=== PATIENT | male | born 1960 | race Caucasian/White ===

== ENCOUNTER 2019-12-01 12:08 | Inpatient (IN) ==
[2019-12-01] MEDS ORDERED: SODIUM CHLORIDE 0.9% 1000ML 1,000 ML IV ONE (12:23)
[2019-12-01] MEDS ORDERED: MAGNESIUM SULFATE / D5W 1 GM/100 ML BAG IV ONE (12:23)
[2019-12-01] MEDS ORDERED: OPTIRAY 320 125ml IV PRN (12:28)
--- NOTE | 2019-12-01 12:39 | CT Scan Report ---
CT head/brain wo con CT DOSE: HISTORY: Mental status change Stroke evaluation TECHNIQUE: Multiaxial CT images of the head were performed without the use of intravenous contrast. A dose lowering technique was utilized adhering to the principles of ALARA. Comparison: None. Findings: Subtle effacement of several left cerebral sulci compared to the right seen primarily from images 11 through 14. This represents either artifact or early infarct of the left middle cerebral ar terial distribution. No evidence for acute intracranial hemorrhage. Impression: 1. 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 If real, this would represent a left middle cerebral arterial distribution. 3. No evidence for acute intracranial hemorrhage. ACT 112: Negative or not required by law. The above report was generated using voice recognition software. It may contain grammatical, syntax or spelling errors. Electronically signed by: Familia Huerta M.D. 12/01/2019 12:37 PM
[2019-12-01 12:40] LABS: Basophils # (auto) 0.03 K/uL (0-0.2); Basophils % (auto) 0.3 %; Eosinophils # (auto) 0.16 K/uL (0-0.5); Eosinophils % (auto) 1.4 %; Hematocrit (blood only) 44.9 % (42-52); Hemoglobin 15.9 g/dL (14.0-18.0); Immature Granulocytes # (auto) 0.07 K/uL (0.00-0.02); Immature Granulocytes % (auto) 0.6 %; Lymphocytes # (auto) 1.47 K/uL (1.2-3.4); Lymphocytes % (auto) 13.1 %; Mean Corpuscular Hemoglobin 28.3 pg (25-34); Mean Corpuscular Hgb Conc 35.4 g/dL (32-36); Mean Corpuscular Volume 79.9 fL (80-100); Mean Platelet Volume 9.9 fL (7.4-10.4); Monocytes # (auto) 0.96 K/uL (0.11-0.59); Monocytes % (auto) 8.6 %; Neutrophils # (auto) 8.49 K/uL (1.4-6.5); Platelet Count 222 K/uL (130-400); RDW Coefficient of Variation 14.1 % (11.5-14.5); RDW Standard Deviation 40.8 fL (36.4-46.3); Red Blood Count 5.62 M/uL (4.7-6.1); White Blood Count 11.18 K/uL (4.8-10.8)
--- NOTE | 2019-12-01 12:41 | CT Scan Report ---
CT angio neck with con HISTORY: Stroke evaluation TECHNIQUE: Multiaxial CT angiography of the neck was performed IV contrast: None. All measurements w ere calculated based on NASCET criteria. Maximum intensity projection images were also obtained. A dose lowering technique was utilized adhering to the principles of ALARA. COMPARISON STUDY: None. FINDINGS: The aortic arch and proximal great vessels are widely patent. There is no significant sten osis, occlusion, or dissection identified within the bilateral common carotid, internal carotid, or v ertebral arteries. IMPRESSION: No significant stenosis, occlusion, or dissection identified within the carotid or vertebral arteries . Minimal scattered plaque formation ACT 112: Negative or not required by law. The above report was generated using voice recognition software. It may contain grammatical, syntax or spelling errors. Electronically signed by: Familia Huerta M.D. 12/01/2019 12:40 PM
--- NOTE | 2019-12-01 12:44 | CT Scan Report ---
CT angio head w con HISTORY: Mental status change Stroke evaluation TECHNIQUE: Multiaxial CT angiography of the head was performed IV contrast: None. Maximum intensit y projection images were also obtained. A dose lowering technique was utilized adhering to the princ iplValarie. COMPARISON: None. FINDINGS: There is no mass, hematoma, midline shift, or acute infarct. Visualized intracranial pricing intern al carotid arteries, distal vertebral arteries, and basilar artery are widely patent. There is no sig nificant stenosis, occlusion, or aneurysm seen within the bilateral ACAs, MCAs, or inspector wreath. IMPRESSION: No significant stenosis, occlusion, or aneurysm within the [place]. ACT 112: Negative or not required by law. The above report was generated using voice recognition software. It may contain grammatical, syntax or spelling errors. Electronically signed by: Familia Huerta M.D. 12/01/2019 12:43 PM
[2019-12-01 12:56] LABS: INR 1.1 (0.9-1.1); Partial Thromboplastin Time 29.1 Seconds (21.0-31.0); Prothrombin Time 11.4 Seconds (9.0-12.0)
[2019-12-01 12:58] LABS: Albumin Level 3.4 gm/dl (3.4-5.0); BUN Creatinine Ratio 9.3 (10-20); Calcium 8.6 mg/dl (8.5-10.1); Creatinine Clr Calc Pharmacy 79.9 ml/min; Est GFR (African American) 60.3; Magnesium 1.5 mg/dl (1.8-2.4); Potassium 2.9 mmol/L (3.5-5.1)
--- NOTE | 2019-12-01 12:59 | Emergency Department Note ---
History of Present Illness General Chief complaint: Stroke Alert Stated complaint: stroke alert Time Seen by Provider: 12/01/19 12:09 Source: patient, family, EMS and RN notes reviewed Mode of arrival: EMS Limitations: altered mental status History of Present Illness Provider complaint: Rt sided weakness Onset (ago): hour(s) 4 Location: face, upper extremity and lower extremity Severity: moderate Treatments prior to arrival: none This is a 59-year-old male who presents emergency department complaining of right-sided weakness. In addition the patient also has a left-sided facial droop. The patient was last seen by his last evening before the patient went to bed. The patient's found him at approximately 9 AM this morning. She reports that the patient reportedly wet himself and was trying to get him self to the toilet. The patient found him in the bathroom and noticed that he could not move the right side of his body and the patient was having much difficulty speaking. She called 911. She reports that she actually last saw the patient normal last evening before the patient went to bed. Home Medications Home Medications Medication Instructions Recorded Confirmed Type aspirin 81 mg PO QAM 12/01/19 12/01/19 History carvedilol phosphate [Coreg CR] 80 mg PO QAM 12/01/19 12/01/19 History dapagliflozin [Farxiga] 5 mg PO QAM 12/01/19 12/01/19 History dulaglutide [Trulicity] 1.5 mg SUBCUT WK 12/01/19 12/01/19 History ezetimibe 10 - 40 mg PO QAM 12/01/19 12/01/19 History fenofibrate nanocrystallized 190 mg PO QAM 12/01/19 12/01/19 History insulin aspart U-100 [Novolog 10 - 30 unit SUBCUT BID PRN 12/01/19 12/01/19 History Flexpen U-100 Insulin] insulin detemir U-100 [Levemir 60 unit SUBCUT AMPM 12/01/19 12/01/19 History FlexTouch U-100 Insuln] levothyroxine 88 mcg PO QAM 12/01/19 12/01/19 History multivitamin 1 tab PO QAM 12/01/19 12/01/19 History nifedipine 90 mg PO QAM 12/01/19 12/01/19 History potassium chloride 10 meq PO BID 12/01/19 12/01/19 History potassium chloride 20 meq PO BID 12/01/19 12/01/19 History telmisartan 40 mg PO QAM 12/01/19 12/01/19 History Allergies Allergy/AdvReac Type Severity Reaction Status Date / Time No Known Allergies Allergy Unverified 12/01/19 13:36 Past Med/Surg History Social History (Updated 12/01/19 @ 14:20 by Ana Mortensen DO) Feels Safe at Home: Yes Smoking Status: Never smoker Hx Alcohol Use: Yes Alcohol Intake Frequency Comment: holidays, rare occasions Hx Substance Use: No Review of Systems A total of 10 systems reviewed and were otherwise negative Physical Exam Vital Signs Vital Signs - 24 hr 12/01/19 12:27 12/01/19 12:29 12/01/19 12:30 Temperature Temperature Source Pulse Rate 71 68 67 Pulse Rate from SpO2 Sensor 68 68 Pulse Rhythm Pulse Strength Respiratory Rate 16 14 21 Respiratory Effort / Characteristics Respiratory Depth Respiratory Pattern Blood Pressure 180/105 H 181/101 H Blood Pressure Mean 132 106 Blood Pressure Position Pulse Oximetry 97 98 Oxygen Delivery Method Room Air Room Air Sepsis Recent Fever Within 48 Hours Sepsis New/Unexplained Change in Mental Status Sepsis Action Taken by Nursing 12/01/19 12:32 12/01/19 12:40 12/01/19 12:50 Temperature Temperature Source Pulse Rate 72 71 75 Pulse Rate from SpO2 Sensor 72 71 73 Pulse Rhythm Regular Pulse Strength Normal Respiratory Rate 18 16 19 Respiratory Effort / Characteristics Non-Labored Spontaneous Respiratory Depth Normal Respiratory Pattern Regular Blood Pressure 180/105 H 181/104 H Blood Pressure Mean 130 121 Blood Pressure Position Lying Pulse Oximetry 95 97 97 Oxygen Delivery Method Room Air Room Air Room Air Sepsis Recent Fever Within 48 Hours No Sepsis New/Unexplained Change in Mental Status No Sepsis Action Taken by Nursing No Action Required 12/01/19 12:51 12/01/19 12:52 12/01/19 13:00 Temperature Temperature Source Pulse Rate 72 72 75 Pulse Rate from SpO2 Sensor 73 73 74 Pulse Rhythm Pulse Strength Respiratory Rate 17 17 19 Respiratory Effort / Characteristics Respiratory Depth Respiratory Pattern Blood Pressure 168/99 H 178/114 H Blood Pressure Mean 119 126 Blood Pressure Position Pulse Oximetry 99 98 97 Oxygen Delivery Method Room Air Room Air Room Air Sepsis Recent Fever Within 48 Hours Sepsis New/Unexplained Change in Mental Status Sepsis Action Taken by Nursing 12/01/19 13:05 12/01/19 13:10 12/01/19 13:20 Temperature Temperature Source Pulse Rate 66 63 67 Pulse Rate from SpO2 Sensor 66 64 67 Pulse Rhythm Pulse Strength Respiratory Rate 13 19 20 Respiratory Effort / Characteristics Respiratory Depth Respiratory Pattern Blood Pressure 164/100 H 139/90 160/95 H Blood Pressure Mean 115 98 114 Blood Pressure Position Pulse Oximetry 97 97 95 Oxygen Delivery Method Room Air Room Air Room Air Sepsis Recent Fever Within 48 Hours Sepsis New/Unexplained Change in Mental Status Sepsis Action Taken by Nursing 12/01/19 13:30 12/01/19 13:35 12/01/19 13:38 Temperature 36.8 C Temperature Source Rectal Pulse Rate 72 67 Pulse Rate from SpO2 Sensor 71 67 Pulse Rhythm Pulse Strength Respiratory Rate 18 15 Respiratory Effort / Characteristics Respiratory Depth Respiratory Pattern Blood Pressure 151/96 H Blood Pressure Mean 104 Blood Pressure Position Pulse Oximetry 97 95 Oxygen Delivery Method Room Air Room Air Sepsis Recent Fever Within 48 Hours Sepsis New/Unexplained Change in Mental Status Sepsis Action Taken by Nursing 12/01/19 13:40 12/01/19 13:50 12/01/19 14:00 Temperature Temperature Source Pulse Rate 66 67 69 Pulse Rate from SpO2 Sensor 66 67 69 Pulse Rhythm Pulse Strength Respiratory Rate 19 20 16 Respiratory Effort / Characteristics Respiratory Depth Respiratory Pattern Blood Pressure 148/108 H 172/100 H 167/104 H Blood Pressure Mean 121 119 119 Blood Pressure Position Pulse Oximetry 93 93 96 Oxygen Delivery Method Room Air Room Air Room Air Sepsis Recent Fever Within 48 Hours Sepsis New/Unexplained Change in Mental Status Sepsis Action Taken by Nursing 12/01/19 14:47 12/01/19 14:49 Temperature Temperature Source Pulse Rate 69 66 Pulse Rate from SpO2 Sensor 68 67 Pulse Rhythm Pulse Strength Respiratory Rate 16 12 Respiratory Effort / Characteristics Respiratory Depth Respiratory Pattern Blood Pressure 137/92 Blood Pressure Mean 102 Blood Pressure Position Pulse Oximetry 94 94 Oxygen Delivery Method Room Air Room Air Sepsis Recent Fever Within 48 Hours Sepsis New/Unexplained Change in Mental Status Sepsis Action Taken by Nursing GENERAL: Patient is a ill-appearing male HEAD: Normocephalic atraumatic FACE: left sided facial droop EYES: Ocular movements intact pupils equal and react to light OROPHARYNX mucous membranes are moist no exudates present no erythema or edema present NECK: Supple no nuchal rigidity CHEST: Good equal expansion LUNGS: Clear and equal to auscultation CARDIAC: Normal S1 and S2 ABDOMEN: Soft nontender no guarding BACK: No CVA tenderness EXTREMITIES: No pain upon palpation normal muscle strength in all groups no clubbing cyanosis or edema, 3/5 strength Rt arm, Rt leg NEURO: Patient is following commands is answering questions appropriately. Alert and oriented x3 Cranial Nerves 2-12 grossly intact Course Administered Medications Potassium Chloride (K Edd / Wtr) 10 meq in 100 mls @ 100 mls/hr IV Q1H KHALIF Stop: 12/01/19 15:14 Last Admin: 12/01/19 14:48 Dose: 100 mls/hr Documented by: [id number] Infusion: 12/01/19 14:13 Dose: 0 mls/hr Documented by: [id number] Admin: 12/01/19 13:13 Dose: 100 mls/hr Documented by: [id number] Ioversol (Optiray 320 125ml) 119 ml IV ONCE PRN PRN Reason: Interaction Checking Stop: 12/05/19 12:27 Last Admin: 12/01/19 12:28 Dose: 119 ml Documented by: [id number] Discontinued Medications Aspirin (Aspirin) 300 mg VT ONE ONE Stop: 12/01/19 13:20 Last Admin: 12/01/19 13:30 Dose: 300 mg Documented by: [id number] Magnesium Sulfate/Dextrose (Magnesium Sulfate / D5w) 1 gm in 100 mls @ 100 mls/hr IV ONE ONE Stop: 12/01/19 13:22 Last Infusion: 12/01/19 13:51 Dose: 0 mls/hr Documented by: [id number] Admin: 12/01/19 12:51 Dose: 100 mls/hr Documented by: [id number] Sodium Chloride (Nss 1000ml) 1,000 mls @ 999 mls/hr IV .Q1H1M ONE Stop: 12/01/19 13:23 Last Infusion: 12/01/19 13:39 Dose: 0 mls/hr Documented by: [id number] Admin: 12/01/19 12:38 Dose: 999 mls/hr Documented by: [id number] Critical Care Time I have personally spent greater than 30 minutes of critical care time in the direct management of this patient. This includes bedside care, interpretation of diagnostic studies, and testing, discussion with consultants, patient, and family members, and other required patient management activities. This 30 minutes is in excess of all separately billable procedures. Medical Decision Making Differential Diagnosis Infection, dehydration, metabolic abnormality, hypo/hyperglycemia, electrolyte disturbance, anemia, hypoxia, cardiac sources, intracerebral event, toxicologic, neurologic, as well as other pathologies. Medical Records Attestation: I reviewed the patient's medical records. Home Medications Current Medication List: was personally reviewed by me Laboratory Data Attestation: I reviewed the patient's lab results. Result diagrams: 12/01/19 12:00 12/01/19 12:00 Lab Results 12/01/19 12/01/19 12/01/19 Range/Units 12:00 12:00 12:00 WBC 11.18 H (4.8-10.8) K/uL RBC 5.62 (4.7-6.1) M/uL Hgb 15.9 (14.0-18.0) g/dL Hct 44.9 (42-52) % MCV 79.9 L (80-100) fL MCH 28.3 (25-34) pg MCHC 35.4 (32-36) g/dL RDW Std Deviation 40.8 (36.4-46.3) fL RDW Coeff of Wilfrid 14.1 (11.5-14.5) % Plt Count 222 (130-400) K/uL MPV 9.9 (7.4-10.4) fL Immature Gran % (Auto) 0.6 % Neut % (Auto) 76.0 % Lymph % (Auto) 13.1 % Cook % (Auto) 8.6 % Eos % (Auto) 1.4 % Baso % (Auto) 0.3 % Immature Gran # (Auto) 0.07 H (0.00-0.02) K/uL Neut # (Auto) 8.49 H (1.4-6.5) K/uL Lymph # (Auto) 1.47 (1.2-3.4) K/uL Cook # (Auto) 0.96 H (0.11-0.59) K/uL Eos # (Auto) 0.16 (0-0.5) K/uL Baso # (Auto) 0.03 (0-0.2) K/uL PT 11.4 (9.0-12.0) Seconds INR 1.1 (0.9-1.1) APTT 29.1 (21.0-31.0) Seconds PTT Ratio 1.0 Sodium 140 (136-145) mmol/L Potassium 2.9 L (3.5-5.1) mmol/L Chloride 106 (98-107) mmol/L Carbon Dioxide 29 (21-32) mmol/L Anion Gap 5.0 (3-11) BUN 13 (7-18) mg/dl Creatinine 1.44 H (0.6-1.4) mg/dl Est Cr Clr Drug Dosing 79.9 ml/min Est GFR ( Amer) 60.3 Est GFR (Non-Af Amer) 52.0 BUN/Creatinine Ratio 9.3 L (10-20) Glucose 141 H (70-99) mg/dl POC Glucose (70-99) mg/dl Calcium 8.6 (8.5-10.1) mg/dl Magnesium 1.5 L (1.8-2.4) mg/dl Total Bilirubin 0.5 (0.2-1) mg/dl AST 39 H (15-37) U/L ALT 37 (12-78) U/L Alkaline Phosphatase 70 (45-117) U/L Total Creatine Kinase 215 (39-308) U/L CK-MB (CK-2) 2.6 (0.5-3.6) ng/ml CK/CKMB % Calc 1.2 (0-3.0) Troponin I 0.027 (0-0.045) ng/ml Total Protein 8.1 (6.4-8.2) gm/dl Albumin 3.4 (3.4-5.0) gm/dl Globulin 4.7 H (2.5-4.0) gm/dl Albumin/Globulin Ratio 0.7 L (0.9-2) 12/01/19 Range/Units 12:29 WBC (4.8-10.8) K/uL RBC (4.7-6.1) M/uL Hgb (14.0-18.0) g/dL Hct (42-52) % MCV (80-100) fL MCH (25-34) pg MCHC (32-36) g/dL RDW Std Deviation (36.4-46.3) fL RDW Coeff of Wilfrid (11.5-14.5) % Plt Count (130-400) K/uL MPV (7.4-10.4) fL Immature Gran % (Auto) % Neut % (Auto) % Lymph % (Auto) % Cook % (Auto) % Eos % (Auto) % Baso % (Auto) % Immature Gran # (Auto) (0.00-0.02) K/uL Neut # (Auto) (1.4-6.5) K/uL Lymph # (Auto) (1.2-3.4) K/uL Cook # (Auto) (0.11-0.59) K/uL Eos # (Auto) (0-0.5) K/uL Baso # (Auto) (0-0.2) K/uL PT (9.0-12.0) Seconds INR (0.9-1.1) APTT (21.0-31.0) Seconds PTT Ratio Sodium (136-145) mmol/L Potassium (3.5-5.1) mmol/L Chloride (98-107) mmol/L Carbon Dioxide (21-32) mmol/L Anion Gap (3-11) BUN (7-18) mg/dl Creatinine (0.6-1.4) mg/dl Est Cr Clr Drug Dosing ml/min Est GFR ( Amer) Est GFR (Non-Af Amer) BUN/Creatinine Ratio (10-20) Glucose (70-99) mg/dl POC Glucose 125 H (70-99) mg/dl Calcium (8.5-10.1) mg/dl Magnesium (1.8-2.4) mg/dl Total Bilirubin (0.2-1) mg/dl AST (15-37) U/L ALT (12-78) U/L Alkaline Phosphatase (45-117) U/L Total Creatine Kinase (39-308) U/L CK-MB (CK-2) (0.5-3.6) ng/ml CK/CKMB % Calc (0-3.0) Troponin I (0-0.045) ng/ml Total Protein (6.4-8.2) gm/dl Albumin (3.4-5.0) gm/dl Globulin (2.5-4.0) gm/dl Albumin/Globulin Ratio (0.9-2) Imaging Data Radiologist's Impression: Patient: FABIO ALMARAZ Admit Date: 12/01/19 MR#: [id number] Address1: [address] Acct ID:[id number] Address2: Date: 1960 [facility] Zip: [place] [address] Age: 59 Location: ED Sex: M Room/Bed: Att Phy: Diagnosis: stroke alert Stephania Phy: PCP,NO Service Date: 12/01/19 Fam Phy: Interpreting Phy: Familia Huerta MD Admit Phy: Ordering Phy: Bautista Mckenzie MD cc: ~ XR chest 1V portable CLINICAL HISTORY: stroke eval mental status change COMPARISON STUDY: No previous studies for comparison. FINDINGS: Mild cardiomegaly. Prominent pulmonary vasculature. Diaphragms are smooth. IMPRESSION: Developing congestive heart failure. ACT 112: Negative or not required by law. The above report was generated using voice recognition software. It may contain grammatical, syntax or spelling errors. Electronically signed by: Familia Huerta M.D. 12/01/2019 1:46 PM [place], [place] [phone] CT Scan Report Patient: FABIO ALMARAZ Admit Date: 12/01/19 MR#: [id number] Address1: [address] Acct ID:[id number] Address2: Date: 1960 [facility] Zip: [place] [address] Age: 59 Location: ED Sex: M Room/Bed: Att Phy: Diagnosis: stroke alert Stephania Phy: PCP,NO Service Date: 12/01/19 Fam Phy: Interpreting Phy: Familia Huerta MD Admit Phy: Ordering Phy: Bautista Mckenzie MD cc: ~ CT angio neck with con HISTORY: Stroke evaluation TECHNIQUE: Multiaxial CT angiography of the neck was performed IV contrast: None. All measurements were calculated based on NASCET criteria. Maximum intensity projection images were also obtained. A dose lowering technique was utilized adhering to the principles of ALARA. COMPARISON STUDY: None. FINDINGS: The aortic arch and proximal great vessels are widely patent. There is no significant stenosis, occlusion, or dissection identified within the bilateral common carotid, internal carotid, or vertebral arteries. IMPRESSION: No significant stenosis, occlusion, or dissection identified within the carotid or vertebral arteries. Minimal scattered plaque formation ACT 112: Negative or not required by law. The above report was generated using voice recognition software. It may contain grammatical, syntax or spelling errors. Electronically signed by: Familia Huerta M.D. 12/01/2019 12:40 PM Dictated: 12/01/19 1238 Transcribed: 12/01/19 1238 [place], [place] [phone] CT Scan Report Patient: FABIO ALMARAZ Admit Date: 12/01/19 MR#: [id number] Address1: [address] Acct ID:[id number] Address2: Date: 1960 [facility] Zip: [place] [address] Age: 59 Location: ED Sex: M Room/Bed: Att Phy: Diagnosis: stroke alert Stephania Phy: PCP,NO Service Date: 12/01/19 Fam Phy: Interpreting Phy: Familia Huerta MD Admit Phy: Ordering Phy: Bautista Mckenzie MD cc: ~ CT angio head w con HISTORY: Mental status change Stroke evaluation TECHNIQUE: Multiaxial CT angiography of the head was performed IV contrast: None. Maximum intensity projection images were also obtained. A dose lowering technique was utilized adhering to the principles of ALARA. COMPARISON: None. FINDINGS: There is no mass, hematoma, midline shift, or acute infarct. Visualized intracranial internal carotid arteries, distal vertebral arteries, and basilar artery are widely patent. 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 IMPRESSION: No significant stenosis, occlusion, or aneurysm within the [place]. ACT 112: Negative or not required by law. The above report was generated using voice recognition software. It may contain grammatical, syntax or spelling errors. Electronically signed by: Familia Huerta M.D. 12/01/2019 12:43 PM Dictated: 12/01/19 1240 Transcribed: 12/01/19 1240 [place], [place] [phone] CT Scan Report Patient: FABIO ALMARAZ Admit Date: 12/01/19 MR#: [id number] Address1: [address] Acct ID:[id number] Address2: Date: 1960 [facility] Zip: [place] [address] Age: 59 Location: ED Sex: M Room/Bed: Att Phy: Diagnosis: stroke alert Stephania Phy: PCP,NO Service Date: 12/01/19 Fam Phy: Interpreting Phy: Familia Huerta MD Admit Phy: Ordering Phy: Bautista Mckenzie MD cc: ~ CT head/brain wo con CT DOSE: HISTORY: Mental status change Stroke evaluation TECHNIQUE: Multiaxial CT images of the head were performed without the use of intravenous contrast. A dose lowering technique was utilized adhering to the principles of ALARA. Comparison: None. Findings: Subtle effacement of several left cerebral sulci compared to the right seen primarily from images 11 through 14. This represents either artifact or early infarct of the left middle cerebral arterial distribution. No evidence for acute intracranial hemorrhage. Impression: 1. 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 If real, this would represent a left middle cerebral arterial distribution. 3. No evidence for acute intracranial hemorrhage. ACT 112: Negative or not required by law. The above report was generated using voice recognition software. It may contain grammatical, syntax or spelling errors. Electronically signed by: Familia Huerta M.D. 12/01/2019 12:37 PM Dictated: 12/01/19 1235 Transcribed: 12/01/19 1235 Patient: FABIO ALMARAZ Admit Date: 12/01/19 MR#: [id number] Address1: [address] [place] [address] Acct ID:[id number] Address2: Date: 1960 [facility] Zip: [place] [address] Age: 59 Location: ED Sex: M Room/Bed: Att Phy: Diagnosis: stroke alert Stephania Phy: PCP,NO Service Date: 12/01/19 Fam Phy: Interpreting Phy: Familia Huerta MD Admit Phy: Ordering Phy: Bautista Mckenzie MD cc: ~ MR brain wo con HISTORY: Pt c/o Rt sided weakness TECHNIQUE: Multiplanar multisequence MRI of the brain was performed without the use of contrast. COMPARISON STUDY: CT same date FINDINGS: Diffusion images confirm the presence of an acute infarct of the left temporal occipital lobe. The ventricular system is midline. There are minimal chronic small vessel changes consistent with age. The sella and parasellar regions are unremarkable. The structures of the internal auditory canals are unremarkable. IMPRESSION: 1. 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 2. This finding is superimposed upon a component of age-related chronic small vessel change. ACT 112: Negative or not required by law. The above report was generated using voice recognition software. It may contain grammatical, syntax or spelling errors. Electronically signed by: Familia Huerta M.D. 12/01/2019 2:49 PM Dictated: 12/01/191445 Transcribed: 12/01/191445 ECG Data Attestation: I personally reviewed and interpreted this ECG as follows: Indication: + altered mental status Rate (beats per minute): 68 ECG Intervals/blocks: + Normal QT-c (467) ECG Philo: + Normal ECG ST segments: no ST depression and no ST elevation Comparison ECG Date: no prior available Blood Pressure Blood Pressure Findings: Elevated blood pressure Blood Pressure Disposition: further management by hospitalist PRIYANKA Narrative Cardiac monitoring: An order was placed for continuous cardiac monitoring. The monitor shows a rate of 70 with Normal Sinus rhythm. This is a 59-year-old male who presents the emergency department with inability to move the right side of his body as well as a left-sided facial droop. His CAT scan is concerning for a left parietal infarct. I did consider giving TPA to this patient however upon further questioning with the patient's it is evident that he has not been seen as normal since last evening. A stroke alert was initiated and the patient was immediately sent for CTA of the head and neck. His CAT scan is concerning for a left parietal infarct. He was started on magnesium and his potassium was repleted here in the emergency department. Potassium was found to be 2.9. He was given per rectal aspirin. After discussing the case with the on-call neurologist who was kind enough to see and examined the patient he was discussed with the hospitalist service who did agree to admit the patient. Impression & Plan Right sided weakness, Weakness on left side of face Discharge Plan Visit Data Chief Complaint: Stroke Alert Stated Complaint: stroke alert ED Provider: Bautista Mckenzie Discharge Problem: Right sided weakness, Weakness on left side of face Forms Stand Alone Forms: [facility] [employer] Prescriptions Prescriptions: No Action multivitamin Tablet 1 tab PO QAM RF: 0 nifedipine 90 mg Tablet Extended Release 90 mg PO QAM RF: 0 potassium chloride 10 mEq Tablet Extended Release 10 meq PO BID RF: 0 aspirin 81 mg Tablet,Delayed Release (Dr/Ec) 81 mg PO QAM RF: 0 levothyroxine 88 mcg Tablet 88 mcg PO QAM RF: 0 telmisartan 20 mg Tablet 40 mg PO QAM RF: 0 ezetimibe 10 mg Tablet 10 - 40 mg PO QAM RF: 0 insulin aspart U-100 [Novolog Flexpen U-100 Insulin] 100 unit/mL (3 mL) Insulin Pen 10 - 30 unit SUBCUT BID PRN (Reason: as per glucose testing) RF: 0 Levemir FlexTouch U-100 Insuln 100 unit/mL (3 mL) Insulin Pen 60 unit SUBCUT AMPM RF: 0 fenofibrate nanocrystallized 145 mg Tablet 190 mg PO QAM RF: 0 carvedilol phosphate [Coreg CR] 80 mg Capsule, Er Multiphase 24 Hr 80 mg PO QAM RF: 0 Farxiga 5 mg Tablet 5 mg PO QAM RF: 0 potassium chloride 20 mEq Tablet Extended Release 20 meq PO BID RF: 0 Trulicity 1.5 mg/0.5 mL Pen Injector 1.5 mg SUBCUT WK RF: 0
[2019-12-01 13:05] LABS: Albumin Globulin Ratio 0.7 (0.9-2); Bilirubin,Total 0.5 mg/dl (0.2-1); Creatine Kinase MB 2.6 ng/ml (0.5-3.6); Globulin 4.7 gm/dl (2.5-4.0); Total Protein 8.1 gm/dl (6.4-8.2); Troponin I 0.027 ng/ml (0-0.045)
[2019-12-01] MEDS: POTASSIUM CHLORIDE / WTR 10 MEQ/100 ML PLCT IV SCH ×2 (13:13→14:48)
[2019-12-01] MEDS ORDERED: ASPIRIN 300 MG SUPP PR ONE (13:19)
--- NOTE | 2019-12-01 13:47 | XRay Report ---
XR chest 1V portable CLINICAL HISTORY: stroke eval mental status change COMPARISON STUDY: No previous studies for comparison. FINDINGS: Mild cardiomegaly. Prominent pulmonary vasculature. Diaphragms are smooth. IMPRESSION: Developing congestive heart failure. ACT 112: Negative or not required by law. The above report was generated using voice recognition software. It may contain grammatical, syntax or spelling errors. Electronically signed by: Familia Huerta M.D. 12/01/2019 1:46 PM
--- NOTE | 2019-12-01 14:29 | History & Physical Report ---
Date of Service December 01, 2019 Assessment & Plan (1) CVA (cerebral vascular accident): As noted on CT CTA head/neck neg for acute MRI, ECHO pending Evaluated by [facility] telestroke in the ED Neuro c/s pending Pt with 81mg aspirin use at baseline, received NE aspirin in ED PT/OT/ST pending (2) ST segment abnormality: Pt has an EKG from 2006 that is similar (scanned to wallet size) Trop neg x1, serials pending ECHO pending (3) Hypokalemia: Replaced in the ED, monitor Baseline PO supplementation noted (4) Hypomagnesemia: Replaced in the ED, monitor Baseline PO supplementation noted (5) Elevated serum creatinine: Possibly chronic as daughter states pt was 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 Pt is unable to answer questions at this time. states that pt was in his usual state of health last night when they went to bed. His only unusual physical finding this week was that his R hand was very cold to touch over the last few days. He had otherwise been able to function at his usual. states that she woke up this morning and attempted to speak with pt, but he was minimally responsive. She states that this is not unusual for him in the AM, so she got up. She was cooking around 10-10:30a when she called into the bedroom, however pt did not answer. She went in the room to speak to him directly and he was not in their bed. He was in the bathroom. She attempted to speak with him through the door, however he was not answering her. She opened the door and could hear the pt mumbling in an attempt to speak, but was unable to do so. Pt was on the floor. She called EMS at that time. states that pt is somewhat improved at this time. He does seem to be understanding more and following commands better. She states he attempts at speaking are better. He seems more "alert" to her. He is also moving his extremities better than during the telestroke eval. denies recent fever, SOB, chest pain, abd pain, n/v/c/d, LE pain or swelling. He has been eating without issue. Pt moved to the area about 2 years ago. He does follow with a PCP and [facility] in [place]. Daughter states via phone that pt was seen by nephrology at one point and had a renal US done, but does not know why. 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 Allergies Allergy/AdvReac Type Severity Reaction Status Date / Time No Known Allergies Allergy Unverified 12/01/19 13:36 Home Medications Home Medications Medication Instructions Recorded Confirmed Type aspirin 81 mg PO QAM 12/01/19 12/01/19 History carvedilol phosphate [Coreg CR] 80 mg PO QAM 12/01/19 12/01/19 History dapagliflozin [Farxiga] 5 mg PO QAM 12/01/19 12/01/19 History dulaglutide [Trulicity] 1.5 mg SUBCUT WK 12/01/19 12/01/19 History ezetimibe 10 - 40 mg PO QAM 12/01/19 12/01/19 History fenofibrate nanocrystallized 190 mg PO QAM 12/01/19 12/01/19 History insulin aspart U-100 [Novolog 10 - 30 unit SUBCUT BID PRN 12/01/19 12/01/19 History Flexpen U-100 Insulin] insulin detemir U-100 [Levemir 60 unit SUBCUT AMPM 12/01/19 12/01/19 History FlexTouch U-100 Insuln] levothyroxine 88 mcg PO QAM 12/01/19 12/01/19 History multivitamin 1 tab PO QAM 12/01/19 12/01/19 History nifedipine 90 mg PO QAM 12/01/19 12/01/19 History potassium chloride 10 meq PO BID 12/01/19 12/01/19 History potassium chloride 20 meq PO BID 12/01/19 12/01/19 History telmisartan 40 mg PO QAM 12/01/19 12/01/19 History Past Med/Surg History Social History (Updated 12/01/19 @ 14:20 by Ana Mortensen DO) Feels Safe at Home: Yes Smoking Status: Never smoker Hx Alcohol Use: Yes Alcohol Intake Frequency Comment: holidays, rare occasions Hx Substance Use: No Review of Systems Review of Systems: Pertinent positives and negatives reviewed in HPI--all others negative Physical Exam Constitutional: WD/WN, vitals as above Eyes: normal visual farr by confrontation and + anicteric sclerae Neck: normal visual inspection and trachea midline Respiratory: normal respiratory effort, lungs clear to auscultation Cardiovascular: Rate/Rhythm: regular rate and regular rhythm Gastrointestinal (Abdomen): Inspection/Auscultation: abdomen not distended Percussion/Palpation: abdomen soft; abdomen nontender Musculoskeletal: Head/Neck/Chest: normocephalic and head atraumatic negative for edema, peripheral pulses intact Skin: no rashes, warm and dry Neurologic: awake and + confused (unable to relay events) Speech / Cognition: + abnormal speech (trying to answer questions, but cannot form words and looks to for ans) 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 move 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, L is 5/5 Strength against resistance in b/l LE 5/5, however delayed movement on the R Psychiatric: Orientation: oriented to person and cooperative Results & Data Results & Data ([facility]) Vital Signs (Past 12 Hours) Vital Signs Temp Pulse Resp BP Pulse Ox 12/01/19 13:50 67 20 172/100 H 93 12/01/19 13:40 66 19 148/108 H 93 12/01/19 13:38 67 15 151/96 H 95 12/01/19 13:35 36.8 C 12/01/19 13:30 72 18 97 12/01/19 13:20 67 20 160/95 H 95 12/01/19 13:10 63 19 139/90 97 12/01/19 13:05 66 13 164/100 H 97 12/01/19 13:00 75 19 178/114 H 97 12/01/19 12:52 72 17 98 12/01/19 12:51 72 17 168/99 H 99 12/01/19 12:50 75 19 97 12/01/19 12:40 71 16 181/104 H 97 12/01/19 12:32 72 18 180/105 H 95 12/01/19 12:30 67 21 181/101 H 98 12/01/19 12:29 68 14 180/105 H 97 12/01/19 12:[address] head: L temporal/parietal infarct with L MCA territory distribution CTA head/neck: neg for acute ECG Additional Comments: ST abn. No prior EKG on file, however pt has a scanned EKG from 2006 that he carries in his wallet that suggests that these are not new. Code Status & VTE Plan Code Status Full code per , is unable to answer VTE Prophylaxis Plan VTE Prophylaxis will be ordered: Yes PG Care Time/CCT Total # of Minutes Spent Total Time Spent with Patient: Total time spent is greater than 50% in coordination of care (as documented) at patient's floor/unit and/or counseling patient: Coding Level of Care Code 56806 Initial Inpt Care Lvl 3 Diagnoses CVA (cerebral vascular accident) I63.9 ST segment abnormality R94.31 Hypokalemia E87.6 Hypomagnesemia E83.42 Elevated serum creatinine R79.89 HTN (hypertension) I10 DM type 2 (diabetes mellitus, type 2) E11.9 Hypothyroid E03.9 Hyperlipidemia E78.5 DVT prophylaxis Z29.9
--- NOTE | 2019-12-01 14:51 | Magnetic Resonance Report ---
MR brain wo con HISTORY: Pt c/o Rt sided weakness TECHNIQUE: Multiplanar multisequence MRI of the brain was performed without the use of contrast. COMPARISON STUDY: CT same date FINDINGS: Diffusion images confirm the presence of an acute infarct of the left temporal occipital lo be. The ventricular system is midline. There are minimal chronic small vessel changes consistent with age. The sella and parasellar regions are unremarkable. The structures of the internal auditory canals are unremarkable. IMPRESSION: 1. 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 2. This finding is superimposed upon a component of age-related chronic small vessel change. ACT 112: Negative or not required by law. The above report was generated using voice recognition software. It may contain grammatical, syntax or spelling errors. Electronically signed by: Familia Huerta M.D. 12/01/2019 2:49 PM
[2019-12-01] MEDS ORDERED: METOPROLOL TARTRATE 1 MG/ML VIAL IV PRN (14:53)
--- NOTE | 2019-12-01 16:27 | Ultrasound Report ---
US venous doppler LE BI HISTORY: Pain. Stroke. Mild status change. Pt CVA COMPARISON STUDY: None. FINDINGS: There is normal compressibility, flow, and augmentation within the bilateral lower extremit y deep venous systems. IMPRESSION: No DVT within the right or left lower extremity. ACT 112: Negative or not required by law. The above report was generated using voice recognition software. It may contain grammatical, syntax or spelling errors. Electronically signed by: Familia Huerta M.D. 12/01/2019 4:26 PM
[2019-12-01] MEDS ORDERED: DEXTROSE 50% 50 ML SYRINGE IV PRN (16:50)
[2019-12-01] MEDS ORDERED: GLUCOSE 10 TABS/TUBE PO PRN (16:50)
[2019-12-01] MEDS ORDERED: GLUCAGON FOR INJ 1 MG VIAL SQ PRN (16:50)
[2019-12-01] MEDS ORDERED: ACETAMINOPHEN 325 MG TAB PO PRN (16:50)
[2019-12-01] MEDS ORDERED: CARBOHYDRATES FOR HYPOGLYCEMIA PO PRN (16:50)
[2019-12-01] MEDS ORDERED: PHARMACIST DISCHARGE MED REC CONSULT PRN (16:50)
[2019-12-01] MEDS ORDERED: GLUCOSE 40% GEL 15 GM TUBE PO PRN (16:50)
[2019-12-01] MEDS ORDERED: ONDANSETRON INJ 2 MG/ML 2 ML VIAL IV PRN (16:50)
[2019-12-01] MEDS ORDERED: MAGNESIUM HYDROXIDE SUSP 30 ML UDC PO PRN (16:50)
[2019-12-01] MEDS: INSULIN ASPART 100 UNITS/ML 3 ML PEN SC SCH ×2 (18:50→20:47)
[2019-12-01] MEDS: NSS + 20MEQ KCL 20 MEQ/1,000 ML BAG IV SCH (19:33)
[2019-12-02] MEDS: NSS + 20MEQ KCL 20 MEQ/1,000 ML BAG IV SCH ×3 (03:29→17:09)
[2019-12-02 07:02] LABS: Basophils # (auto) 0.02 K/uL (0-0.2); Basophils % (auto) 0.2 %; Eosinophils # (auto) 0.11 K/uL (0-0.5); Hematocrit (blood only) 44.1 % (42-52); Hemoglobin 15.2 g/dL (14.0-18.0); Immature Granulocytes # (auto) 0.06 K/uL (0.00-0.02); Immature Granulocytes % (auto) 0.5 %; Lymphocytes # (auto) 1.53 K/uL (1.2-3.4); Lymphocytes % (auto) 13.9 %; Mean Corpuscular Hemoglobin 27.9 pg (25-34); Mean Corpuscular Hgb Conc 34.5 g/dL (32-36); Mean Corpuscular Volume 80.9 fL (80-100); Mean Platelet Volume 9.7 fL (7.4-10.4); Monocytes # (auto) 0.81 K/uL (0.11-0.59); Monocytes % (auto) 7.4 %; Neutrophils # (auto) 8.46 K/uL (1.4-6.5); Platelet Count 209 K/uL (130-400); RDW Coefficient of Variation 14.6 % (11.5-14.5); RDW Standard Deviation 42.4 fL (36.4-46.3); Red Blood Count 5.45 M/uL (4.7-6.1); White Blood Count 10.99 K/uL (4.8-10.8)
[2019-12-02 07:45] LABS: Calcium 7.5 mg/dl (8.5-10.1); Creatinine Clr Calc Pharmacy 99.9 ml/min; Est GFR (African American) 81.7; Est GFR (Non-African American) 70.5; Magnesium 1.4 mg/dl (1.8-2.4); Potassium 2.1 mmol/L (3.5-5.1)
[2019-12-02] MEDS ORDERED: POTASSIUM PHOS 3 MMOL/1 ML INFUSION IV STA (08:09)
[2019-12-02] MEDS: INSULIN ASPART 100 UNITS/ML 3 ML PEN SC SCH ×4 (08:10→21:04)
[2019-12-02] MEDS ORDERED: POTASSIUM PHOSPHATE 21 MMOL in SODIUM CHLORIDE 0.9% 500 ML IV ONE (08:30)
[2019-12-02 08:47] LABS: Estimated Average Glucose 166 mg/dl; Hemoglobin A1C 7.4 % (4.5-5.6)
[2019-12-02] MEDS ORDERED: LEVOTHYROXINE SODIUM 44 MCG in SYRINGE 0 ML IV SCH (09:00)
[2019-12-02] MEDS: POTASSIUM CHLORIDE / WTR 10 MEQ/100 ML PLCT IV SCH ×4 (09:08→12:15)
[2019-12-02] MEDS: MAGNESIUM SULFATE / D5W 1 GM/100 ML BAG IV SCH ×2 (09:09→10:08)
--- NOTE | 2019-12-02 10:02 | Neurology Consultation ---
Date of Consultation December 02, 2019 Assessment & Plan (1) Hypothyroid: (2) Hyperlipidemia: (3) HTN (hypertension): (4) Right sided weakness: (5) CVA (cerebral vascular accident): Jayden Bird is a 59 yo man w/ PMH of HTN, HLD, CKD, hypothyroidism, and DM on insulin who p/t [facility] with R-sided weakness and right FP. Symptom localization: left MCA inferior division Stroke mechanism: cardioembolic, less likely hypercoagulable or cryptogenic Stroke WorkUp: - CT head: loss of concepcion-white differentiation in the left temporo-parietal lobe (inferior division of L MCA) - CTA head/neck: no LVO, high grade stenosis or aneurysm - MRI brain: large subacute infarct in the left temporo-parietal lobe with associated mild edema but no midline shift - TTE: EF 60-65%, borderline LVH, mild MR, mild TR, no interarterial shunt - Telemetry: pending - A1c: 7.4 - FLP: 59 - Troponin, TSH: 0.030, pending Stroke Management: - Acute treatment: ASA - Continuous cardiac monitoring, will consider loop recorder as outpatient if telemetry here unrevealing - Vitals, Neurochecks, NIHSS per unit routine - BP parameters: SBP CAP 180, restart home anti-hypertensives, IV Labetalol/Hydralazine PRN - Complete ischemic stroke workup with TSH - Consult speech, PT, OT for supportive management - Will classification counselor concerning stroke education, smoking cessation, healthy diet, physical activity, weight loss - Follow up with PCP for assistance with outpatient goals (BP <135/85, LDL <70, A1c <7) - Follow up in neurology clinic in 6-8 weeks with a telehealth visit (video if able to register for portal vs phone check in) - TalkSession watch (day 2 of 5), if any acute mental status changes, low threshold to repeat CTH without contrast Secondary Stroke Prevention: - Antiplatelet: ASA 300mg MS daily, change to plavix 75mg daily after cleared for PO - Anticoagulation: Not indicated at this time - Statin: continue home fenofibrate and ezetimibe as he is at LDL goal (<70) HTN: - BP parameters, as above - Restart home medications (carvedilol, nifedipine) with goal of lowering BP to normotension over next 3-4 days FEN/GI: - Diet: NPO until cleared by Speech evaluation - Monitor lytes and replete PRN Glucose Control: - Sliding scale insulin and accuchecks per primary team to avoid hyperglycemia Thank you for this interesting consult. Plan of care was discussed with primary team. Please call or text with any questions. History of Present Illness Attending Physician: Rupert Paulino MD History of Present Illness Jayden Bird is a 59 yo man w/ PMH of HTN, HLD, CKD, hypothyroidism, and DM on insulin who p/t [facility] with R-sided weakness and left FP. 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 In the ED, BP 180/105, HR 68, RR 14, satting 97% on room air. Labs notable for WBC 11.18, Hb 15.9, Plts 222, K 2.9, Cr 1.44, glucose 141, INR 1.1, Na 140, Mg low at 1.5, LFTs WNL, troponin 0.027. CXR shows mild cardiomegaly with prominent pulmonary vasculature c/f developing CHF. Independent review of CTH shows loss of concepcion-white differentiation in the left temporo-parietal lobe (inferior division of L MCA). CTA head and neck shows no LVO, high grade stenosis or aneurysm. MRI brain shows a large subacute infarct in the left temporo-parietal lobe with associated mild edema but no midline shift. On examination today, Jayden was unable to answer the majority of questions and was visibly frustrated by this. He could follow commands to some degree. Stroke Workflow: Where patient arrived from: home Time patient arrived in ED: 12:10pm on 12/01/19 Triaged as Trauma: N In-house stroke: n/a Mode of arrival: Ambulance Time patient undergoes CT head: 12:10pm on 12/01/19 Time patient undergoes advanced imagin:47pm on 11/30 CT ASPECT: 7 Time IV tpa is given: NA If tpa not given, why not: Outside of time window If delay >60min after hospital arrival, why: n/a If no IA therapy, why not: No LVO on CTA/MRA, poor ASPECT Patient Features: Admission NIHSS: 19 Admission Modified Toombs Scale: 0-1 Time patient last seen well: evening of 11/30/19 Wake up stroke: Yes Intubation status: Not intubated Stroke Risk Factors: Hypertension: Y Hyperlipidemia: Y Atrial Fib: N Tobacco: Y, chews tobacco Diabetes: Y Taking NOAC or warfarin: N Allergies Allergy/AdvReac Type Severity Reaction Status Date / Time No Known Allergies Allergy Unverified 12/01/19 13:36 Home Medications Home Medications Medication Instructions Recorded Confirmed Type aspirin 81 mg PO QAM 12/01/19 12/01/19 History carvedilol phosphate [Coreg CR] 80 mg PO QAM 12/01/19 12/01/19 History dapagliflozin [Farxiga] 5 mg PO QAM 12/01/19 12/01/19 History dulaglutide [Trulicity] 1.5 mg SUBCUT WK 12/01/19 12/01/19 History ezetimibe 10 - 40 mg PO QAM 12/01/19 12/01/19 History fenofibrate nanocrystallized 190 mg PO QAM 12/01/19 12/01/19 History insulin aspart U-100 [Novolog 10 - 30 unit SUBCUT BID PRN 12/01/19 12/01/19 History Flexpen U-100 Insulin] insulin detemir U-100 [Levemir 60 unit SUBCUT AMPM 12/01/19 12/01/19 History FlexTouch U-100 Insuln] levothyroxine 88 mcg PO QAM 12/01/19 12/01/19 History multivitamin 1 tab PO QAM 12/01/19 12/01/19 History nifedipine 90 mg PO QAM 12/01/19 12/01/19 History potassium chloride 10 meq PO BID 12/01/19 12/01/19 History potassium chloride 20 meq PO BID 12/01/19 12/01/19 History telmisartan 40 mg PO QAM 12/01/19 12/01/19 History Patient History Social History Preferred Language: [place] Communication Ability: Impaired 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 Physical Exam Physical Exam: General Exam: GEN: NAD, sitting down in examination bed. HEENT: No conjunctival injection, no rhinorrhea. CV: RRR on monitor, no significant edema. PULM: Nonlabored respirations on room air. Neuro Exam: MS: Awake and Alert. Unable to answer orientation questions. Speech nonfluent, + dysarthria. Unable to name, repeat, intermittent comprehension but more mimicking. Unable to assess cognition and memory. Attention intact. No neglect. CN: Right hemianopsia. No clear extinction to double simultaneous stimuli. Unable to visualize fundi on fundoscopic exam. PERRLA OU. EOMI without nystagmus. Facial sensation intact to LT. R FP. Hearing intact to conversation. Uvula midline with symmetric palatal elevation. SCMs and shoulder shrug normal. Tongue midline. MOTOR: Normal bulk and tone. No pronator drift. BUEs and LLE antigravity without drift, RLE antigravity with drift to bed. REFLEXES: 1+ at biceps, triceps, brachioradialis, 1+ patella, and absent Achilles bilaterally. Toes mute bilaterally. SENSORY: Intact to LT/vibration/temperature throughout except RLE diminished, no extinction to double simultaneous stimuli. COORDINATION: No clear dysmetria or ataxia on observed movement. GAIT: Deferred due to physical status. NIH STROKE SCALE 1A. Level of Consciousness (0-3) = 0 1B. LOC Questions (0-2) = 2 1C. LOC Commands (0-2) = 1 2. Best Horizontal Gaze (0-2) = 0 3. Visual Bueno (0-3) = 2 4. Facial Palsy (0-3) = 3 5. Motor Arm Right (0-4) = 0 Left (0-4) = 0 6. Motor Leg Right (0-4) = 1 Left (0-4) = 0 7. Limb Ataxia (0-2) = 0 8. Sensory (0-2) = 1 9. Best Language (0-3) = 2 10. Dysarthria (0-2) = 2 11. Extinction and Inattention (0-2) = 0 NIHSS TOTAL = 14 Results & Data Vital Signs (Past 12 Hours) Vital Signs Temp Pulse Pulse Resp BP Pulse Ox 12/02/19 07:51 36.7 C 66 18 160/89 H 94 12/02/19 07:45 71 12/02/19 04:00 36.9 C 64 18 159/89 H 94 12/02/19 00:08 67 12/01/19 23:15 36.7 C 66 18 135/77 93 PG Care Time/CCT Total # of Minutes Spent Total Time Spent with Patient: Total time spent is greater than 50% in coordin ation of care (as documented) at patient's floor/unit and/or counseling patient: Coding Level of Care Code 71291 Inpt Consult Level 5 Diagnoses Hypothyroid E03.9 Hyperlipidemia E78.5 HTN (hypertension) I10 Right sided weakness R53.1 CVA (cerebral vascular accident) I63.9
--- NOTE | 2019-12-02 11:09 | Electrocardiogram Report ---
Test Reason : Blood Pressure : / mmHG Vent. Rate : 068 BPM Atrial Rate : 068 BPM P-R Int : 176 ms QRS Dur : 100 ms QT Int : 440 ms P-R-T Axes : 077 062 -70 degrees QTc Int : 467 ms Normal sinus rhythm Abnormal ECG No previous ECGs available Confirmed by Ihsan Martines ([id number]) on 12/02/2019 11:09:30 AM Referred By: REFERRED SELF Confirmed By:Ihsan Martines
--- NOTE | 2019-12-02 11:40 | XCELERA ---
[id number] \\[id number]\[id number]_[id number]
--- NOTE | 2019-12-02 13:34 | Hospitalist Progress Note ---
Date of Service December 02, 2019 Assessment & Plan (1) CVA (cerebral vascular accident): MRI brain on 11/30 showed large acute geographic infarct of the left temporal occipital lobe. Right hemiplegia in the setting of possible embolic stroke. - CTA head/neck 11/30 showed no significant stenosis, occlusion, or aneurysm. - Echo on 12/01 showed no PFO or interatrial shunt. - ASA 300 mg DC daily - Monitor telemetry - PT/OT/ST pending (2) HTN (hypertension): BP is 160/95 today. Holding home meds while NPO. - Will restart home carvedilol, telmisartan, and nifedipine as able - Metorpolol IV PRN (3) Elevated serum creatinine: Cr was 1.44 on admission, but down to 1.12 on 12/01 with eGFR 70. Possibly some CKD as daughter states pt was seen by a bootmaker and had an US a few years ago. - Monitor (4) Hypokalemia: Unclear why he is so low. Is on a baseline supplement. - Repleted via IV today. - Monitor (5) ST segment abnormality: Pt has an EKG from 2006 that is similar (scanned to wallet size). - Serial troponins were negative. Echo showed normal EF and no regional wall motion abnormalities. (6) DM type 2 (diabetes mellitus, type 2): A1c is 7.4% this admission. - Sliding scale insulin - All blood sugars are stable today. (7) Hypothyroid: No TSH noted in chart. - Continue levothyroxine 44 mcg IV daily - Will get TSH/FT4 in the AM (8) Hyperlipidemia: Lipid panel on 12/01 showed LDL 59, HDL 31. - Holding PO statins due to dysphagia - Will start atorvastatin & restart ezetimibe & fenofibrate when taking PO (9) DVT prophylaxis: SCDs Admission and Anticipated Discharge Date Admission Date: December 01, 2019 Subjective Alert and awake, but unable to communicate. He tries to speak, but cannot give yes/no. Review of Systems Review of Systems: Unobtainable due to cognitive status Physical Exam Constitutional: WD/WN, vitals as above + in distress Eyes: EOM intact bilaterally; no conjunctival abnormality ENMT: external ear and nose normal, oropharynx normal Neck: trachea midline, no thyromegaly normal visual inspection Respiratory: normal respiratory effort, lungs clear to auscultation no respiratory distress Cardiovascular: RRR, no murmur, no edema Gastrointestinal (Abdomen): Inspection/Auscultation: abdomen normal to inspection; abdomen not distended Musculoskeletal: no cyanosis or clubbing, extremities motor strength 5/5 Skin: no rashes, warm and dry Neurologic: moves all extremities and awake Speech / Cognition: + expressive aphasia (Unable to say anything.) Motor/Sensory: + abnormal movement (Right arm with poor coordination) Psychiatric: Orientation: alert, oriented to person and cooperative Results & Data Results & Data ([facility]) Vital Signs (Past 12 Hours) Vital Signs Temp Pulse Pulse Resp BP BP Pulse Ox 12/02/19 12:25 67 162/96 H 12/02/19 12:09 162/96 H 12/02/19 11:31 36.6 C 66 17 172/95 H 96 12/02/19 07:51 36.7 C 66 18 160/89 H 94 12/02/19 07:45 71 12/02/19 04:00 36.9 C 64 18 159/89 H 94 PG Care Time/CCT Total # of Minutes Spent Total Time Spent with Patient: Total time spent is greater than 50% in coordination of care (as documented) at patient's floor/unit and/or counseling patient: Coding Level of Care Code 06345 Subseq Hosp Care Lvl 3 Diagnoses CVA (cerebral vascular accident) I63.9 HTN (hypertension) I10 Elevated serum creatinine R79.[address] segment abnormality R94.31 DM type 2 (diabetes mellitus, type 2) E11.9 Hypothyroid E03.9 Hyperlipidemia E78.5 DVT prophylaxis Z29.9
[2019-12-02 23:14] LABS: Calcium 7.4 mg/dl (8.5-10.1); Creatinine Clr Calc Pharmacy 92.4 ml/min; Est GFR (African American) 74.4; Est GFR (Non-African American) 64.2; Magnesium 1.5 mg/dl (1.8-2.4); Phosphorus 1.7 mg/dl (2.5-4.9); Potassium 1.9 mmol/L (3.5-5.1)
[2019-12-03] MEDS ORDERED: POTASSIUM PHOS 3 MMOL/1 ML INFUSION IV STA (00:16)
[2019-12-03] MEDS ORDERED: POTASSIUM CHLORIDE 20 MEQ TABCR PO STA (00:16)
[2019-12-03] MEDS ORDERED: POTASSIUM CHLORIDE 40 MEQ in SODIUM CHLORIDE 0.9% 1000ML 1,000 ML IV SCH (00:30)
[2019-12-03] MEDS ORDERED: POTASSIUM PHOSPHATE 30 MMOL in SODIUM CHLORIDE 0.9% 500 ML IV ONE (00:45)
[2019-12-03] MEDS: MAGNESIUM SULFATE / D5W 1 GM/100 ML BAG IV SCH ×6 (00:51→07:40)
[2019-12-03 03:16] LABS: Basophils # (auto) 0.02 K/uL (0-0.2); Basophils % (auto) 0.2 %; Eosinophils # (auto) 0.05 K/uL (0-0.5); Eosinophils % (auto) 0.5 %; Hematocrit (blood only) 43.1 % (42-52); Hemoglobin 15.2 g/dL (14.0-18.0); Immature Granulocytes # (auto) 0.02 K/uL (0.00-0.02); Immature Granulocytes % (auto) 0.2 %; Lymphocytes # (auto) 1.51 K/uL (1.2-3.4); Lymphocytes % (auto) 13.8 %; Mean Corpuscular Hemoglobin 27.9 pg (25-34); Mean Corpuscular Hgb Conc 35.3 g/dL (32-36); Mean Corpuscular Volume 79.2 fL (80-100); Mean Platelet Volume 9.1 fL (7.4-10.4); Monocytes # (auto) 1.06 K/uL (0.11-0.59); Monocytes % (auto) 9.7 %; Neutrophils # (auto) 8.32 K/uL (1.4-6.5); Neutrophils % (auto) 75.6 %; Platelet Count 168 K/uL (130-400); RDW Coefficient of Variation 14.4 % (11.5-14.5); RDW Standard Deviation 41.3 fL (36.4-46.3); Red Blood Count 5.44 M/uL (4.7-6.1); White Blood Count 10.98 K/uL (4.8-10.8)
[2019-12-03 04:07] LABS: BUN Creatinine Ratio 8.2 (10-20); Calcium 7.2 mg/dl (8.5-10.1); Creatinine Clr Calc Pharmacy 92.3 ml/min; Est GFR (Non-African American) 65.5; Phosphorus 2.4 mg/dl (2.5-4.9); Potassium 2.1 mmol/L (3.5-5.1); Thyroid Stimulating Hormone 1.04 uIu/ml (0.300-4.500)
[2019-12-03] MEDS: POTASSIUM CHLORIDE 20 MEQ TABCR PO SCH ×2 (05:25→08:38)
[2019-12-03 06:06] LABS: Urine Potassium 57.4 mmol/L
[2019-12-03] MEDS ORDERED: LEVOTHYROXINE SODIUM 88 MCG TABLET PO SCH (06:30)
[2019-12-03] MEDS ORDERED: GADOBUTROL 65ML VIAL IV PRN (07:00)
--- NOTE | 2019-12-03 07:03 | Magnetic Resonance Report ---
MR brain pituitary wo/w con CLINICAL HISTORY: 59 years-old Male presenting with recent stroke, concern for DI, concern for pituit jourdan mass. TECHNIQUE: Multisequence, multiplanar MR imaging of the brain was performed before and after the admi nistration of intravenous contrast. Dedicated sequences of the pituitary gland were performed includi ng dynamic postcontrast imaging. IV contrast: 12.3 mL of Gadavist. COMPARISON: MR brain from 12/01/[address] head from 12/01/2019. FINDINGS: Localizer images: Unremarkable. Bone marrow signal intensity within the calvarium within normal limits. Dedicated dynamic postcontrast imaging of the pituitary demonstrates homogeneous enhancement without evidence of a focal nodule. Normal size of the pituitary gland. Normal appearance and thickness of th e infundibulum. Normal midline sagittal structures. Effacement of the left lateral ventricle. Extensive mass effect a long the posterior left convexity with sulcal effacement due to the known acute infarct. Minimal if a ny left to right midline shift. Interval increase in extent of the left middle cerebral artery territ ory distribution infarct, which involves the lateral aspect of the left temporal lobe, lateral aspect of the left occipital lobe, majority of the left parietal lobe and now minimally extends into the le ft frontal lobe including involvement of the precentral gyrus. Susceptibility artifact within the pos terior left temporal lobe is concerning for developing hemorrhagic conversion (series 5 image 35). Th ere is no gross T1 hyperintensity or definitive T2 abnormality in this region. Extensive T2 hyperinte nsity of the brain parenchyma restricting diffusion. No extra-axial fluid collection. T2 skull base flow voids preserved. IMPRESSION: 1. Interval increase in size of the left MCA territory acute infarct now involving the posterior lef t frontal lobe and a greater extent of the left parietal lobe. 2. Signal intensity changes within the posterior left temporal lobe suspicious for early/hyperacute HEMORRHAGIC CONVERSION, new from prior. Consider short-term follow-up head CT within 6 hours. 3. No evidence of a pituitary mass or adenoma. The report will be called/faxed according to standard departmental protocol for a critical finding. ACT 112: Negative or not required by law. Electronically signed by: Twan Rubio M.D. 12/03/2019 7:02 AM
[2019-12-03] MEDS: INSULIN ASPART 100 UNITS/ML 3 ML PEN SC SCH (07:45)
--- NOTE | 2019-12-03 08:14 | Discharge Summary ---
Date of Service December 03, 2019 Admission HPI Per Admitting Provider 59 y/o M who was brought her by EMS for concern of stroke at home. Pt is unable to answer questions at this time. states that pt was in his usual state of health last night when they went to bed. His only unusual physical finding this week was that his R hand was very cold to touch over the last few days. He had otherwise been able to function at his usual. states that she woke up this morning and attempted to speak with pt, but he was minimally responsive. She states that this is not unusual for him in the AM, so she got up. She was cooking around 10-10:30a when she called into the bedroom, however pt did not answer. She went in the room to speak to him directly and he was not in their bed. He was in the bathroom. She attempted to speak with him through the door, however he was not answering her. She opened the door and could hear the pt mumbling in an attempt to speak, but was unable to do so. Pt was on the floor. She called EMS at that time. states that pt is somewhat improved at this time. He does seem to be understanding more and following commands better. She states he attempts at speaking are better. He seems more "alert" to her. He is also moving his extremities better than during the telestroke eval. denies recent fever, SOB, chest pain, abd pain, n/v/c/d, LE pain or swelling. He has been eating without issue. Pt moved to the area about 2 years ago. 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 Daughter states via phone that pt was seen by nephrology at one point and had a renal US done, but does not know why. 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 Principal Diagnosis Left MCA stroke Discharge Exam Constitutional WD/WN, vitals as above + in distress Eyes EOM intact bilaterally; no conjunctival abnormality ENMT external ear and nose normal, oropharynx normal Neck trachea midline, no thyromegaly normal visual inspection Respiratory normal respiratory effort, lungs clear to auscultation no respiratory distress Cardiovascular RRR, no murmur, no edema Gastrointestinal (Abdomen) Inspection/Auscultation: abdomen normal to inspection; abdomen not distended Musculoskeletal no cyanosis or clubbing, extremities motor strength 5/5 Skin no rashes, warm and dry Neurologic moves all extremities and awake Speech / Cognition: + expressive aphasia (Unable to say anything.) Motor/Sensory: + abnormal movement (Right arm with poor coordination) Psychiatric Orientation: alert, oriented to person and cooperative Discharge Data Allergies Allergy/AdvReac Type Severity Reaction Status Date / Time No Known Allergies Allergy Unverified 12/01/19 13:36 Consultations 12/01/19 13:28 ED Decision to Admit Stat 12/01/19 16:50 Consult Case Management - Discharge Planning Routine Consult Case Management - Discharge Planning Routine Consult Neurology Routine Ordered Studies 12/01/19 12:10 CT angio head w con Stat CT angio neck with con Stat CT head/brain wo con Stat 12/01/19 12:47 MR brain wo con Stat US venous doppler LE BI Stat 12/03/19 05:04 MR brain pituitary wo/w con Routine Hospital Course (1) CVA (cerebral vascular accident): MRI brain on 11/30 showed large acute geographic infarct of the left temporal occipital lobe. Right hemiplegia in the setting of possible embolic stroke. - CTA head/neck 11/30 showed no significant stenosis, occlusion, or aneurysm. - Echo on 12/01 showed no PFO or interatrial shunt. - ASA 300 mg MT give on 12/01. Given the concern for hemorrhagic conversion on 12/02, anti-platelet agent (Plavix) was HELD. Additionally, he was not given statin or any BP medications. - BP has generally been 150/90 to 160/105. His HTN agents were planned to start on 12/02, but were held given pending transfer to ICU where a drip might be better for tight BP control. - Monitor telemetry -> No arrhythmia seen on telemetry in the 48 hours he was in our hospital. - On 12/02, at 5:00am, a repeat MRI was done. This was actually of the pituitary for his severe hypokalemia; however, it did show a enlarging stroke with a possible hemorrhagic conversion in the posterior left temporal lobe. Case was discussed with [facility] neurology who felt he would benefit from ICU status at a tertiary care center. Transport was arranged. - Physical exam was stable with dense aphasia. (2) Hypokalemia: Unclear why he is so low. Is on a baseline supplement of KCl 30 mEq PO BID at home. His significant other knows he is on a supplement, but did not know etiology. Patient obviously aphasic and cannot give further explanation. - Repleted via IV (>60 mEq given) on 12/01, but K+ was still 2.1 the morning of 12/02. (3) HTN (hypertension): BP was generally 150/90 to 160/105 today. Held home meds while NPO on 12/01. Plan was to restart ARB and CCB on 12/02 to gradually bring him lower. - All BP meds held on 12/02 for transfer and presumed drips in ICU setting. (4) Elevated serum creatinine: Cr was 1.44 on admission, but down to 1.12 on 12/01 with eGFR 70. Possibly some CKD as daughter states pt was seen by a lab animal technician and had an US a few years ago. - Monitor (5) ST segment abnormality: Pt has an EKG from 2006 that is similar (scanned to wallet size). - Serial troponins were negative. Echo showed normal EF and no regional wall motion abnormalities. (6) DM type 2 (diabetes mellitus, type 2): A1c is 7.4% this admission. - Held oral meds. - Sliding scale insulin - All blood sugars were stable ~100 during admission. (7) Hypothyroid: TSH was 1.05 on 12/02. - Continued home levothyroxine 88 mcg PO daily (8) Hyperlipidemia: Lipid panel on 12/01 showed LDL 59, HDL 31. - Planned to restart ezetimibe & fenofibrate on 12/02. - There was no plan for him to get a statin given his lipids were already at goal. So, he did not get a statin while inpatient. (9) DVT prophylaxis: SCDs -> No heparin products were given as we were concerned about his stroke size, and then he had the concern for hemorrhagic conversion on 12/02. Total Time Total Time Spent Total Time Spent (In Minutes): 35 Discharge Plan Discharge Items Reason For Visit: CVA Follow-up/Referrals: PCP,NO [Primary Care Provider] - Medications and DC Order Prescriptions: No Action multivitamin Tablet 1 tab PO QAM RF: 0 nifedipine 90 mg Tablet Extended Release 90 mg PO QAM RF: 0 potassium chloride 10 mEq Tablet Extended Release 10 meq PO BID RF: 0 aspirin 81 mg Tablet,Delayed Release (Dr/Ec) 81 mg PO QAM RF: 0 levothyroxine 88 mcg Tablet 88 mcg PO QAM RF: 0 telmisartan 20 mg Tablet 40 mg PO QAM RF: 0 ezetimibe 10 mg Tablet 10 - 40 mg PO QAM RF: 0 insulin aspart U-100 [Novolog Flexpen U-100 Insulin] 100 unit/mL (3 mL) Insulin Pen 10 - 30 unit SUBCUT BID PRN (Reason: as per glucose testing) RF: 0 Levemir FlexTouch U-100 Insuln 100 unit/mL (3 mL) Insulin Pen 60 unit SUBCUT AMPM RF: 0 fenofibrate nanocrystallized 145 mg Tablet 190 mg PO QAM RF: 0 carvedilol phosphate [Coreg CR] 80 mg Capsule, Er Multiphase 24 Hr 80 mg PO QAM RF: 0 Farxiga 5 mg Tablet 5 mg PO QAM RF: 0 potassium chloride 20 mEq Tablet Extended Release 20 meq PO BID RF: 0 Trulicity 1.5 mg/0.5 mL Pen Injector 1.5 mg SUBCUT WK RF: 0 Admission Data Admit Date/Time: 12/01/19 14:16 Attending Provider: Rupert Paulino Admit Provider: Ana Mortensen Primary Care Provider: PCP,NO Other Providers: Reagan Espinoza ; Rupert Paulino ; [facility] Coding Level of Care Code D/C Day Management >30 mins Diagnoses CVA (cerebral vascular accident) I63.9 Hypokalemia E87.6 HTN (hypertension) I10 Elevated serum creatinine R79.89 ST segment abnormality R94.31 DM type 2 (diabetes mellitus, type 2) E11.9 Hypothyroid E03.9 Hyperlipidemia E78.5 DVT prophylaxis Z29.9
[2019-12-03] MEDS ORDERED: STROKE PATIENT DISCHARGE STA (08:24)
[2019-12-03 08:40] LABS: BUN Creatinine Ratio 7.8 (10-20); Calcium 7.4 mg/dl (8.5-10.1); Creatinine Clr Calc Pharmacy 97.2 ml/min; Est GFR (African American) 80.9; Est GFR (Non-African American) 69.8; Magnesium 2.5 mg/dl (1.8-2.4); Phosphorus 2.4 mg/dl (2.5-4.9); Potassium 2.2 mmol/L (3.5-5.1)
[2019-12-03] MEDS ORDERED: EZETIMIBE 10 MG TABLET PO SCH (09:00)
[2019-12-03] MEDS ORDERED: TELMISARTAN 40 MG TAB PO SCH (09:00)
[2019-12-03] MEDS ORDERED: ASPIRIN 81 MG CHEW PO SCH (09:00)
[2019-12-03] MEDS ORDERED: CLOPIDOGREL BISULFATE 75 MG TAB PO SCH (09:00)
[2019-12-03] MEDS ORDERED: ASPIRIN 300 MG SUPP PR SCH (09:00)
[2019-12-03] MEDS ORDERED: ATORVASTATIN 40 MG TAB PO SCH (09:00)
--- NOTE | 2019-12-03 09:38 | Electrocardiogram Report ---
Test Reason : Blood Pressure : / mmHG Vent. Rate : 097 BPM Atrial Rate : 340 BPM P-R Int : 000 ms QRS Dur : 106 ms QT Int : 372 ms P-R-T Axes : 000 010 -82 degrees QTc Int : 472 ms Atrial fibrillation Prolonged QT Abnormal ECG When compared with ECG of 01-DEC-2019 12:28, Atrial fibrillation has replaced Sinus rhythm ST now depressed in Anterolateral leads T wave inversion more evident in Anterolateral leads Confirmed by Ihsan Martines ([id number]) on 12/03/2019 9:38:35 AM Referred By: REFERRED SELF Confirmed By:Ihsan Martines
== END 2019-12-03 09:40 | disposition short-term general hospital (02) | DRG 66 ==
LOC: ED 12:08 → 2S 14:16 → SUATTDRO 14:16 → 2S 15:37